=== PATIENT | female | born 1990 | race American Indian/Alaskan Native ===

== ENCOUNTER 2016-11-07 00:37 | Emergency (ER) | payer SELFPAY ==
[2016-11-07 03:28] LABS: Basophils % (Auto) 0.8 % (0.0-1.8); Eosinophils % (Auto) 1.1 % (0.0-4.3); Hematocrit 31.8 % (30.3-42.9); Hemoglobin 10.6 gm/dl (10.1-14.3); Mean Corpuscular HGB Conc 33 % (30-34); Mean Corpuscular Volume 73 fl (79-97); Platelet Count 316 K/mm3 (140-440); Red Blood Count 4.35 M/mm3 (3.65-5.03); Red Cell Distribution Width 15.5 % (13.2-15.2); White Blood Count 9.2 K/mm3 (4.5-11.0)
[2016-11-07 03:41] LABS: Mean Corpuscular Hemoglobin 24 pg (28-32)
[2016-11-07 04:48] LABS: Bilirubin,Urine NEG (Negative); Blood,Urine LG (Negative); Ketones,Urine NEG (Negative); Leukocyte Esterase,Urine NEG (Negative); Mucus,Urine 1+ /HPF; Nitrite,Urine NEG (Negative); Urobilinogen,Urine < 2.0 mg/dL (<2.0)
--- NOTE | 2016-11-07 05:36 | Ultrasound Report ---
FINAL REPORT PROCEDURE: US OB \T\lt; = 14 WEEKS FETUS TECHNIQUE: Real-time transabdominal sonography of the uterus, placenta, amniotic fluid, adnexa, and fetus was performed with image documentation. Measurements were obtained to determine age/size. M-mode Doppler was used to document heartbeat. CPT 49276 HISTORY: vaginal bleeding COMPARISON: No prior studies are available for comparison. FINDINGS: No intrauterine or ectopic is identified. The endometrium measures 5.2 millimeters in thickness. There is no fluid. Cervix: Normal. Right Ovary: Normal. Left Ovary: Normal. There is no free pelvic fluid. IMPRESSION: No intrauterine or ectopic is identified. Correlation with beta HCG levels may be helpful.
--- NOTE | 2016-11-07 05:37 | Ultrasound Report ---
FINAL REPORT PROCEDURE: US OB \T\lt; = 14 WEEKS FETUS TECHNIQUE: Real-time transvaginal sonography of the uterus, placenta, amniotic fluid, adnexa, and fetus was performed with image documentation. Measurements were obtained to determine age/size. M-mode Doppler was used to document heartbeat. HISTORY: vaginal bleeding COMPARISON: No prior studies are available for comparison. FINDINGS: No intrauterine or ectopic is identified. The endometrium measures 5.2 millimeters in thickness. There is no fluid. Cervix: Normal. Right Ovary: Normal. Left Ovary: Normal. There is no free pelvic fluid. IMPRESSION: No intrauterine or ectopic is identified. Correlation with beta HCG levels may be helpful.
--- NOTE | 2016-11-07 11:56 | Emergency Department Report ---
ED Female HPI - General Chief complaint: Vaginal Bleeding Stated complaint: ABD PAIN/VAG BLEEDING/ Source: patient Mode of arrival: Ambulatory Limitations: No Limitations - History of Present Illness Initial comments: 26-year-old female presents to the hospital with positive test and vaginal bleeding. Patient was seen 5 days ago at [facility] for heavy vaginal bleeding. Patient has irregular menses with LMP in July. She was told during her visit 5 days ago that she was and her hCG level was 43. Patient followed up 2 days later and was told that her hCG level was 63. She had ultrasound no IUP was identified. She was diagnosed with early and follow-up encouraged. Patient began having increased vaginal bleeding last night with clots and has used 2 pads in 24 hours. Crampy intermittent suprapubic 7/10 abdominal pain has since resolved the bleeding has improved. Patient does not have a [facility] doctor. This is patient's first . - Related Data Home Medications Medication Instructions Recorded Confirmed Last Taken Tablet 1 tab PO DAILY 11/07/16 11/07/16 Unknown Allergies Allergy/AdvReac Type Severity Reaction Status Date / Time No Known Allergies Allergy Unverified 11/07/16 02:57 ED Review of Systems ROS: Stated complaint: ABD PAIN/VAG BLEEDING/ Other details as noted in HPI Comment: All other systems reviewed and negative Other: Constitutional: No fevers chills or weight loss Eyes: No eye pain visual changes or discharge ENT: No ear pain or throat pain Neck: Denies pain Respiratory: Denies cough wheezing shortness of breath Cardiovascular: Denies chest pain, palpitations, syncope GI: As per HPI : Denies dysuria Musculoskeletal: Denies back pain, joint swelling Skin: Denies rash, lesions, erythema Neurologic: Denies headache, numbness, weakness Psychiatric: Denies suicidal ideation, hallucinations ED Past Medical Hx - Past Medical History Previous Medical History?: No - Surgical History Past Surgical History?: No - Social History Smoking Status: Never Smoker Substance Use Type: None, Marijuana - Medications Home Medications: Home Medications Medication Instructions Recorded Confirmed Last Taken Type Tablet 1 tab PO DAILY 11/07/16 11/07/16 Unknown History ED Physical Exam - General Limitations: No Limitations - Other Other exam information: General: No limitations, patient is alert in no acute distress Head exam: Atraumatic, normocephalic Eyes exam: Normal appearance ENT: Moist mucous membrane, normal oropharynx Neck exam: Normal inspection, full range of motion Respiratory exam: Clear to auscultation bilateral, no wheezes, rales, crackles Cardiovascular: Normal rate and rhythm, normal heart sounds Abdomen: Soft, nondistended, and nontender, with normal bowel sounds, no rebound, or guarding Extremity: Full range of motion normal inspection no deformity Back: Normal Inspection, full range of motion, no tenderness Neurologic: Alert, oriented x3, cranial nerves intact, no motor or sensory deficit Psychiatric: normal affect, normal mood Skin: Warm, dry, intact ED Course Vital Signs 11/07/16 02:46 Temperature 98 F Pulse Rate 92 H Respiratory 16 Rate Blood Pressure 132/80 Blood Pressure 132/80 [Left] O2 Sat by Pulse 100 Oximetry - Reevaluation(s) Reevaluation #1: 11/07/16 11:55 Patient stable. ED Medical Decision Making - Lab Data Result diagrams: 11/07/16 03:01 Lab Results 11/07/16 11/07/16 11/07/16 Range/Units 03:01 03:01 03:01 WBC 9.2 (4.5-11.0) K/mm3 RBC 4.35 (3.65-5.03) M/mm3 Hgb 10.6 (10.1-14.3) gm/dl Hct 31.8 (30.3-42.9) % MCV 73 L (79-97) fl MCH 24 L (28-32) pg MCHC 33 (30-34) % RDW 15.5 H (13.2-15.2) % Plt Count 316 (140-440) K/mm3 Lymph % (Auto) 48.7 H (13.4-35.0) % [place] % (Auto) 7.6 H (0.0-7.3) % Eos % (Auto) 1.1 (0.0-4.3) % Baso % (Auto) 0.8 (0.0-1.8) % Lymph # 4.5 (1.2-5.4) K/mm3 [place] # 0.7 (0.0-0.8) K/mm3 Eos # 0.1 (0.0-0.4) K/mm3 Baso # 0.1 (0.0-0.1) K/mm3 Seg Neutrophils % 41.8 (40.0-70.0) % Seg Neutrophils # 3.9 (1.8-7.7) K/mm3 HCG, Quant 49.44 H (0-4) mIU/mL Urine Color (Yellow) Urine Turbidity (Clear) Urine pH (5.0-7.0) Ur Specific [place] (1.003-1.030) Urine Protein (Negative) mg/dL Urine Glucose (UA) (Negative) mg/dL Urine Ketones (Negative) mg/dL Urine Blood (Negative) Urine Nitrite (Negative) Urine Bilirubin (Negative) Urine Urobilinogen (<2.0) mg/dL Ur Leukocyte Esterase (Negative) Urine WBC (Auto) (0.0-6.0) /HPF Urine RBC (Auto) (0.0-6.0) /HPF U Epithel Cells (Auto) (0-13.0) /HPF Urine Mucus /HPF Blood Type O POSITIVE Antibody Screen TNR LIZZIE Antibody Screen Negative 11/07/16 Range/Units 04:25 WBC (4.5-11.0) K/mm3 RBC (3.65-5.03) M/mm3 Hgb (10.1-14.3) gm/dl Hct (30.3-42.9) % MCV (79-97) fl MCH (28-32) pg MCHC (30-34) % RDW (13.2-15.2) % Plt Count (140-440) K/mm3 Lymph % (Auto) (13.4-35.0) % [place] % (Auto) (0.0-7.3) % Eos % (Auto) (0.0-4.3) % Baso % (Auto) (0.0-1.8) % Lymph # (1.2-5.4) K/mm3 [place] # (0.0-0.8) K/mm3 Eos # (0.0-0.4) K/mm3 Baso # (0.0-0.1) K/mm3 Seg Neutrophils % (40.0-70.0) % Seg Neutrophils # (1.8-7.7) K/mm3 HCG, Quant (0-4) mIU/mL Urine Color Yellow (Yellow) Urine Turbidity Clear (Clear) Urine pH 5.0 (5.0-7.0) Ur Specific [place] 1.030 (1.003-1.030) Urine Protein 100 mg/dl (Negative) mg/dL Urine Glucose (UA) Neg (Negative) mg/dL Urine Ketones Neg (Negative) mg/dL Urine Blood Lg (Negative) Urine Nitrite Neg (Negative) Urine Bilirubin Neg (Negative) Urine Urobilinogen < 2.0 (<2.0) mg/dL Ur Leukocyte Esterase Neg (Negative) Urine WBC (Auto) 5.0 (0.0-6.0) /HPF Urine RBC (Auto) 54.0 (0.0-6.0) /HPF U Epithel Cells (Auto) 2.0 (0-13.0) /HPF Urine Mucus 1+ /HPF Blood Type Antibody Screen LIZZIE Antibody Screen - Radiology Data Radiology results: report reviewed (transvaginal/pelvic ultrasound: No IUP) - Medical Decision Making Plan to discharge patient home with a copy of her current laboratory values. Most recent hCG was 63 2-3 days ago. Patient is likely having an miscarriage. Follow-up will be encouraged for repeat hCG to continue to trend values. Blood type is O+ and patient is not requiring any RhoGAM - Differential Diagnosis miscarriage, ectopic, early Critical Care Time: No Critical care attestation.: If time is entered above; I have spent that time in minutes in the direct care of this critically ill patient, excluding procedure time. ED Disposition Clinical Impression: Miscarriage Disposition: DISCHARGED TO HOME OR SELFCARE Is pt being admited?: No Does the pt Need Aspirin: No Condition: Stable Instructions: Spontaneous Miscarriage (ED), Threatened Miscarriage (ED) Additional Instructions: Based on the information you have provided in the ER it appears that you are having a miscarriage. You have reported that your most recent beta hCG level was in the 60s and today it is 49. Ultrasound today does not reveal any signs of . You need to follow-up with [facility] to continue to repeat your blood work to make sure that your level continues to decrease to 0. If this level increases instead of decreases then that means you are still and you need to be followed to make sure that your is in the right place and not in your tubes. Please return if symptoms worsen as indicated by her discharge instructions. You have provided a copy of the laboratory results from today for outpatient follow-up. Take Tylenol as needed for pain. Referrals: ZULEYMA KEITH MD [Staff Physician] - 2-3 Days Time of Disposition: 12:10
[2016-11-07 12:27] VITALS: BP 129/79
== END 2016-11-07 12:19 | disposition home or self-care (01) ==
LOC: ED 00:37
DX: O03.9 Complete or unspecified spontaneous abortion without complication (principal); O99.320 Drug use complicating pregnancy, unspecified trimester; Z3A.00 Weeks of gestation of pregnancy not specified
CPT/HCPCS: 36415; 76801; 76817; 81001; 84702; 85025; 86850; 86900; 86901; 99284